=== PATIENT | male | born 1970 | race Hispanic/Latino ===

== ENCOUNTER 2024-01-05 16:56 | Emergency (ER) | payer OTHER ==
[~2024-01-05] VITALS: Ht 167.6 cm; Wt 75.7 kg
[~2024-01-05 16:56] MED LIST: DOCUSATE SODIU100 MG PO; FOLIC ACID0.4 MG PO; IRON325 M1 PO; KEPPRA500 MG PO; LACTULOSE20 GM/30 M PO; MIRALAX17 GM PO; PANTOPRAZOLE SO40 MG PO; PROPRANOLOL HCL10 MG PO; PROTONIX40 MG/ML PO; VITAMIN B-1100 M1 PO; VITAMIN C500 M2 PO; XIFAXAN550 MG PO
[2024-01-05 17:52] LABS: BASOPHILS # (AUTO) 0.1 (0.0-0.1); BASOPHILS % 0.7 % (0.0-1.0); EOSINOPHILS # (AUTO) 0.4 (0.0-0.4); HEMATOCRIT 24.3 % (38.2-49.6); HEMOGLOBIN 7.3 g/dL (14.0-18.0); LYMPHOCYTES # (AUTO) 0.9 (1.0-3.2); MEAN CORPUSCULAR HEMOGLOBIN 23.8 pg (28-32); MEAN CORPUSCULAR VOLUME 79.2 fL (81-99); MONOCYTES # (AUTO) 0.9 (0.2-0.8); MONOCYTES % 8.8 % (4.4-11.3); NEUTROPHILS # (AUTO) 7.4 (2.1-6.9); NEUTROPHILS % 76.8 % (38.7-80.0); PLATELET COUNT 107 x10e3/uL (140-360); RED BLOOD COUNT 3.07 x10e6/uL (4.3-5.7); RED CELL DISTRIBUTION WIDTH 18.3 % (11.7-14.4); WHITE BLOOD COUNT 9.67 x10e3/uL (4.8-10.8)
[2024-01-05 18:21] LABS: ALBUMIN 2.8 g/dL (3.5-5.0); ALBUMIN/GLOBULIN RATIO 0.7 (0.8-2.0); ANION GAP 12.3 mmol/L (8-16); BILIRUBIN,TOTAL 2.4 mg/dL (0.2-1.2); CALCIUM 8.7 mg/dL (8.4-10.2); CREATININE, SERUM 0.71 mg/dL (0.72-1.25)
[2024-01-05 18:22] LABS: POTASSIUM 3.3 mmol/L (3.5-5.1)
[2024-01-05] MEDS: SODIUM CHLORIDE 0.9% 1000ML 1,000 ML IV STA (18:22)
[2024-01-05 18:40] LABS: CREATINE KINASE 247 IU/L (30-200)
[2024-01-05 18:48] LABS: TROPONIN I < 0.001 ng/mL (0-0.300)
[2024-01-05] MEDS ORDERED: SODIUM CHLORIDE 0.9% 100 ML ONE (18:59)
[2024-01-05] MEDS ORDERED: IOPAMIDOL 370 MG/ML 100 ML INFUS..BTL INJ ONE (19:00)
[2024-01-05 20:53] LABS: AMPHETAMINES SCREEN,URINE POSITIVE (NEGATIVE); BENZODIAZEPINES SCREEN,URINE NEGATIVE (NEGATIVE); BILIRUBIN,URINE SMALL (NEGATIVE); CANNABINOIDS SCREEN,URINE NEGATIVE (NEGATIVE); CLARITY,URINE SL CLOUDY (CLEAR); COLOR,URINE YELLOW (YELLOW); GLUCOSE, URINE NEGATIVE (NEGATIVE); KETONES,URINE TRACE (NEGATIVE); LEUKOCYTE ESTERASE ,URINE NEGATIVE (NEGATIVE); METHADONE SCREEN, URINE POSITIVE (NEGATIVE); NITRITE,URINE NEGATIVE (NEGATIVE); OPIATES SCREEN,URINE NEGATIVE (NEGATIVE); PH,URINE 6 (5 - 7); PHENCYCLIDINE SCREEN,URINE NEGATIVE (NEGATIVE); PROTEIN,URINE DIPSTICK TRACE (NEGATIVE); URINE UROBILINOGEN 4 mg/dL (0.2 - 1)
[2024-01-05 21:04] LABS: BACTERIA,URINE FEW /HPF; EPITHELIAL CELLS,URINE MODERATE /LPF; MUCUS,URINE MANY (RARE)
[2024-01-05] MEDS ORDERED: PROTONIX20 MG PO (21:27)
[2024-01-05 21:28] VITALS: BP 112/68; PULSE 84; RESP 16; TEMP 98.7; O2SAT 99
== END 2024-01-05 21:40 | disposition home or self-care (01) ==
LOC: ER 17:12
DX: K62.5 Hemorrhage of anus and rectum (principal); D64.9 Anemia, unspecified; G56.81 Other specified mononeuropathies of right upper limb; K76.9 Liver disease, unspecified; G40.909 Epilepsy, unspecified, not intractable, without status epilepticus; Z11.52 Encounter for screening for COVID-19
CPT/HCPCS: 36415; 70450; 74174; 80053; 80307; 80320; 81001; 82140; 82550; 83690; 84484; 85025; 93005; 99284; J7030; J7050; Q9967; U0002